=== PATIENT | female | born 1950 | race Caucasian/White ===

== ENCOUNTER → 2025-05-29 13:16 | Outpatient (REF) | payer OTHER, SELFPAY | LOC: RAD 13:16 | PROVIDERS: ATTENDING PHYSICIAN Internal Medicine Gastroenterology; FAMILY PHYSICIAN Family Medicine | DX: R19.00 Intra-abdominal and pelvic swelling, mass and lump, unspecified site (principal) | CPT/HCPCS: 74177; Q9967 ==

== ENCOUNTER 2025-06-09 21:34 | Emergency (ER) | payer OTHER, SELFPAY ==
[2025-06-09 21:35] VITALS: BP 168/95
[2025-06-09 21:59] LABS: Hematocrit 38.7 % (37.0-47.0); Hemoglobin 12.9 g/dL (12.0-16.0); Mean Corp Hgb Conc. 33.3 g/dL (33.0-37.0); Mean Corpuscular Volume 90.2 fL (81.0-99.0); Nucleated Red Blood Cells % 0 %; Platelet Count 233 10^3/uL (130-400); Red Cell Dist. Width 13.5 % (11.5-14.5); Urine Character Clear (Clear)
[2025-06-09 22:11] LABS: Urine Squamous Cell >30 /LPF (Few)
[2025-06-09 22:30] LABS: ALT (SGPT) 19 U/L (0-35); AST (SGOT) 21 U/L (14-36); Albumin 4.3 g/dl (3.5-5.0); Alkaline Phosphatase 57 U/L (38-126); Blood Urea Nitrogen 19 mg/dl (7-17); Calcium 9.5 mg/dl (8.4-10.2); Carbon Dioxide 24 mmol/L (22-30); Chloride 105 mmol/L (98-107); Glucose 97 mg/dl (70-99); Lipase 184 U/L (23-300); Potassium 3.6 mmol/L (3.5-5.1); Sodium 136 mmol/L (135-145); Total Protein 7.0 g/dl (6.3-8.2); eGFR 47.50
--- NOTE | 2025-06-10 01:24 | ED.GENMED ---
History of Present Illness
<Chinyere Cuevas PA-C - Last Filed: 06/10/25 10:17>
General
Chief Complaint: Urinary Symptoms
Source: patient
Exam Limitations: none
Time Seen by Provider: 06/10/25 01:14
Nursing documentation reviewed up to this point in time: agreed with
History of Present Illness
History of Present Illness:
The patient is a 74-year-old female with pmh of IBS follows with GI who initially noticed an abdominal mass several months ago. The mass was initially not painful and felt similar to a three-month . Over time, the mass has migrated
towards the left side and has varied in size. The patient describes the mass as sometimes larger and more tender, and she has recently experienced cramping similar to menstrual cramps, a new occurrence as of today. She previously never had pain with
the mass and this concerned her. She reports that taking ibuprofen seemed to alleviate the discomfort. A recent CT scan suggested the presence of a mass on the left ovary or possibly uterus, and the patient has begun to feel something in that area
today. She has a history of ovarian fibroids, as noted by her OB-SOCIAL SCIENCES PROFESSOR many years ago, but describes this as being a very long time ago and currently does not follow with SOCIAL SCIENCES PROFESSOR. The patients abdominal pain is now diffuse but can rise up from the side.
She describes the mass as 'spreading out' and tender to touch, and she noted that the ibuprofen taken at 3:30 reduced discomfort.
Associated symptoms include back pain and anxiety about the mass potentially bursting. The patient denies any recent nausea, vomiting, or systemic symptoms, except for some urinary incontinence for which she wears a pad and is NOT new and has been
going on for multiple years. There is no recent vaginal bleeding bleeding reported.
Dr. Noé STRICKLAND ordered MRI and she has been scheduled for an MRI which is to be completed in 2 days.
Review of Systems
<Chinyere Cuevas PA-C - Last Filed: 06/10/25 10:17>
Review of Systems
All Other Systems: ROS reviewed and negative except as documented in HPI and ROS
Phy Exam
<Chinyere Cuevas PA-C - Last Filed: 06/10/25 10:17>
General Physical Exam
General Presentation: well appearing and no apparent distress
General age: appears stated age
General Skin: warm and dry
General Habitus: normal
General Mental: alert
General Hydration: appears well hydrated
Eye Exam
Eye Exam: PERRL and EOMI
Cardiovascular Exam
Cardiovascular Exam: regular rate/rhythm, no edema and no murmur
Pulmonary Exam
Pulmonary Exam: lungs clear and no respiratory distress
Gastrointestinal Exam
Gastrointestinal Exam: normal bowel sounds, non tender, soft, no pulsatile mass, non distended and mass
Neurological Exam
Neurological Exam: alert and oriented x3
Skin Exam
Skin Exam: normal color and warm/dry
Psychiatric Exam
Psychiatric Exam: normal mood/affect
Course
<DL Ortega Last Filed: 06/10/25 10:17>
Orders/Labs/Results
Orders:
Orders
06/09/25 21:52
Complete Blood Count/With Diff Urgent
Comprehensive Metabolic Panel Urgent
Lipase Urgent
Urine Microscopic Reflex Cult Urgent
Urine Reflex Culture from UA [Urinalysis Reflex To Culture] Urgent
Date Specimen was Collected: 06/09/25
Time Specimen was Collected: 21:45
Urine Culture Urgent
HARJINDER Source: U
Specimen Description:
Date Specimen was Collected: 06/09/25
Time Specimen was Collected: 21:45
06/10/25 01:39
US Pelvis W Transvag Combined Urgent
Comment:
Reason For Exam: left pelvic pain, ?ovarian mass, attn to flow
06/10/25 01:40
0.9% Sodium Chloride 500 ml [Nss] 500 ml IV BOLUS
Abnormal Lab Results
06/09/25
21:52
BUN 19 H mg/dl
(7-17)
Creatinine 1.2 H mg/dL
(0.6-1.0)
Urine Ketones 2+ A
(Negative)
Ur Occult Blood Reflex 2+ A
(Negative)
Urine RBC 3-6 A /HPF
(0-2)
Urine Bacteria (Reflex) Moderate A
(Negative)
06/09/25 21:52
06/09/25 21:52
Vital Signs
Initial and Last Documented VS:
Initial Vital Signs
Temp Pulse Resp BP Pulse Ox
98.2 F 78 18 168/95 100
06/09/25 21:35 06/09/25 21:35 06/09/25 21:35 06/09/25 21:35 06/09/25 21:35
Last Documented Vital Signs
Temp Pulse Resp BP Pulse Ox
98.2 F 72 14 146/78 97
06/09/25 21:35 06/10/25 05:06 06/10/25 05:06 06/10/25 05:06 06/10/25 05:06
<Camden Hartley, DO - Last Filed: 06/10/25 04:46>
Orders/Labs/Results
Orders:
Orders
06/09/25 21:52
Complete Blood Count/With Diff Urgent
Comprehensive Metabolic Panel Urgent
Lipase Urgent
Urine Microscopic Reflex Cult Urgent
Urine Reflex Culture from UA [Urinalysis Reflex To Culture] Urgent
Date Specimen was Collected: 06/09/25
Time Specimen was Collected: 21:45
Urine Culture Urgent
HARJINDER Source: U
Specimen Description:
Date Specimen was Collected: 06/09/25
Time Specimen was Collected: 21:45
06/10/25 01:39
US Pelvis W Transvag Combined Urgent
Comment:
Reason For Exam: left pelvic pain, ?ovarian mass, attn to flow
06/10/25 01:40
0.9% Sodium Chloride 500 ml [Nss] 500 ml IV BOLUS
Abnormal Lab Results
06/09/25
21:52
BUN 19 H mg/dl
(7-17)
Creatinine 1.2 H mg/dL
(0.6-1.0)
Urine Ketones 2+ A
(Negative)
Ur Occult Blood Reflex 2+ A
(Negative)
Urine RBC 3-6 A /HPF
(0-2)
Urine Bacteria (Reflex) Moderate A
(Negative)
06/09/25 21:52
06/09/25 21:52
Vital Signs
Initial and Last Documented VS:
Initial Vital Signs
Temp Pulse Resp BP Pulse Ox
98.2 F 78 18 168/95 100
06/09/25 21:35 06/09/25 21:35 06/09/25 21:35 06/09/25 21:35 06/09/25 21:35
Last Documented Vital Signs
Temp Pulse Resp BP Pulse Ox
98.2 F 72 14 146/78 97
06/09/25 21:35 06/10/25 05:06 06/10/25 05:06 06/10/25 05:06 06/10/25 05:06
<Chinyere Cuevas PA-C - Last Filed: 06/10/25 10:17>
MDM/Problems Addressed
Differential Diagnosis Includes:
- Ovarian mass (benign or malignant)
- Ovarian torsion
- Uterine fibroids/necrotic leiomyoma
- Gastrointestinal pathology (e.g., bowel obstruction)
- Urinary tract infection or mass
- Hernia
- Pelvic inflammatory disease
- Abdominal neoplasm
- Deep vein thrombosis recurrence
- Adhesions related to past surgeries
MDM/Problems Addressed:
The patient is a 74-year-old female with pmh of IBS follows with [facility] who initially noticed an abdominal mass several months ago. The mass was initially not painful and felt similar to a three-month . Over time, the mass has migrated
towards the left side and has varied in size. The patient describes the mass as sometimes larger and more tender, and she has recently experienced cramping similar to menstrual cramps.
CT scan recently reviewed, large 11.2 cm circumscribed mass in the center of the pelvis anterior to the uterus and possibly arising from the left ovary. Diagnostic possibilities are (1) most likely a LARGE LEFT OVARIAN TUMOR (possibly LEFT OVARIAN
CANCER), (2) a large centrally necrotic subserosal uterine leiomyoma (less likely), or (3) a gastrointestinal stromal tumor - GIST (less likely). Patient was sent for ultrasound which states mass likely related to uterus, although no normal ovarian
tissue was noted. Mass torsion cannot be exluded on ultrasound. Clinically low suspicion for this.
Patient provided reasurance and we talked about return precautions. Patient stable for discharge.
Chronic conditions affecting care:
IBS
<Chinyere Cuevas PA-C - Last Filed: 06/10/25 10:17>
*Pulse Oximetry
SaO2: 100
Oxygen Mode of Delivery: Room air
Patient hypoxic: no
*Critical Care Note
Total Time (30-74mins, 75-104mins- exclusive of procedures): Not Applicable
<Chinyere Cuevas PA-C - Last Filed: 06/10/25 10:17>
Patient Management
Discussion with other providers: Picking Machine Operator (SOCIAL SCIENCES PROFESSOR--Dr. Melgoza--torsion of mass unlikely due to how large the mass is--close out patient follow up)
Escalation/DeEscalation of care consider admission/obs:
Admit not indicated, patient stable for discharge
ED Attending Note
<Chinyere Cuevas PA-C - Last Filed: 06/10/25 10:17>
-
Portions of this chart may have been created with voice recognition software.� Occasional wrong word or��sound alike� substitutions may have occurred due to the inherent limitations of voice recognition software.
<Camden Hartley DO - Last Filed: 06/10/25 04:46>
ED Attending Note
Patient seen and examined by attending physician: Yes
ED Attending Note:
74-year-old female presents with abdominal/pelvic pain. She states that has been present throughout much of the evening. She took ibuprofen which seemed to help. She has been kind of resting comfortably in the emergency department with
intermittent bursts of pain. Denies fever, chills, nausea or vomiting. Patient wishes to be discharged home. She will have an MRI which is scheduled for this Sunday. She is due to see Dr. Santa after that. Patient was seen in conjunction with
the nurse practitioner. I have reviewed and agree with her history and treatment plan.
Discharge Plan
Departure
Patient Disposition: Home (Routine Discharge)
Date of Disposition: 06/10/25
Time of Disposition: 04:47
Patient with high blood pressure during this ER visit?: Yes
Condition: Good
Discharge Problem:
Pelvic mass, Abdominal pain
Instructions: Pelvic pain - ED (DC), Abdominal Pain
Referrals:
Anival Gray DO [Family Provider, Family Practice]
Activity Restrictions/Additional Instructions:
You can take Tylenol and ibuprofen as needed for pain. Please call the office to see if you can move up your appointment with Dr. Umanzor. Please complete MRI sunday.
PLEASE RETURN TO THE ER SHOULD YOU DEVELOP ANY ACUTE WORSENING OF YOUR PAIN, FEVERS OR CHILLS, VAGINAL BLEEDING, DIZZINESS, LIGHTHEADEDNESS, CHEST PAIN, SHORTNESS OF BREATH, OR ANY OTHER SIGNS OR SYMPTOMS WORRISOME TO YOU.
Interventions
Interventions:
*Risk Screen - Suicide Last Done: 06/09/25 21:35
*General Assessment Last Done: 06/09/25 21:35
*Neglect/Abuse Screening Last Done: 06/09/25 21:35
*ED- Fall Risk Assessment Last Done: 06/10/25 02:29
*ED COVID-19 Vaccine History Last Done: 06/09/25 21:35
*Nursing Disposition Last Done: 06/10/25 05:06
XL-Gllhsr-Ntrkskzqkj Assessment Last Done: 06/10/25 01:02
ED-Female Genitourinary Assessment Last Done: 06/10/25 01:00
Discharge Date and Time
Discharge Date/Time: 06/10/25 05:08
Print Language: PARAGUAYAN
[2025-06-10] MEDS: NSS 500 IV (02:19)
[2025-06-10 04:02] VITALS: BP 146/78
[2025-06-10 05:06] VITALS: BP 146/78
== END 2025-06-10 05:08 | disposition home or self-care (01) ==
LOC: EMR 21:34
PROVIDERS: Emergency Medicine; EMERGENCY PHYSICIAN Student in an Organized Health Care Education/Training Program; FAMILY PHYSICIAN Family Medicine
DX: R19.00 Intra-abdominal and pelvic swelling, mass and lump, unspecified site (principal); R10.9 Unspecified abdominal pain; K58.9 Irritable bowel syndrome, unspecified
CPT/HCPCS: 99284; 96360; 76830; 76856; 80053; 81003; 81015; 83690; 85025; 87086

== ENCOUNTER → 2025-06-12 09:15 | Outpatient (REF) | payer OTHER, SELFPAY | LOC: MRI 3T 09:15 | PROVIDERS: ATTENDING PHYSICIAN Obstetrics & Gynecology Gynecology; FAMILY PHYSICIAN Family Medicine | DX: N94.9 Unspecified condition associated with female genital organs and menstrual cycle (principal) | CPT/HCPCS: 72197; A9575 ==

== ENCOUNTER → 2025-08-20 19:38 | Outpatient (REF) | payer OTHER, SELFPAY | LOC: MRI 19:38 | PROVIDERS: ATTENDING PHYSICIAN Internal Medicine Gastroenterology; FAMILY PHYSICIAN Family Medicine | DX: R19.00 Intra-abdominal and pelvic swelling, mass and lump, unspecified site (principal); Z80.0 Family history of malignant neoplasm of digestive organs | CPT/HCPCS: 74183; A9575 ==